=== PATIENT | female | born 1945 | race Caucasian/White ===

== ENCOUNTER → 2020-05-30 12:04 | Outpatient (BNVA) | payer MEDICARE, SELFPAY | PROVIDERS: Family Provider Family Medicine; Visit Provider Internal Medicine | DX: Z20.828 Contact with and (suspected) exposure to other viral communicable diseases (principal) | CPT/HCPCS: 87635 ==

== ENCOUNTER 2020-06-03 07:19 | Outpatient (CLI) | payer MEDICARE, MEDICAID, SELFPAY ==
--- NOTE | 2020-06-03 14:41 | PFTS_ITS ---
Date of Study:06/03/20 Date of Dictation: MECHANICS: Forced vital capacity (FVC) is reduced. Forced expiratory volume in one second (FEV1) is reduced. FEV1/FVC is normal. FLOW VOLUME LOOP: Narrow. LUNG VOLUMES: Not measured DIFFUSING CAPACITY FOR CARBON MONOXIDE: Not measured INTERPRETATION: Spirometry is consistent with moderately severe restriction. MTDD
== END 2020-06-03 07:20 | disposition home or self-care (01) ==
LOC: RT 07:21
PROVIDERS: PCP Internal Medicine; Visit Provider Internal Medicine
DX: R06.02 Shortness of breath (principal)
CPT/HCPCS: 94010; J7611

== ENCOUNTER 2020-06-24 14:39 | Outpatient (CLI) | payer MEDICARE, MEDICAID, SELFPAY ==
--- NOTE | 2020-06-24 14:47 | MM_ITS ---
WS: [id number] BILATERAL DIGITAL SCREENING MAMMOGRAPHY WITH CAD CLINICAL INFORMATION: SCREENING HISTORY: Screening mammogram. No current complaints. COMPARISON: TECHNIQUE: Bilateral CC and MLO views. FINDINGS: Scattered fibroglandular densities bilaterally. No suspicious focal mass, asymmetry, calcifications, or architectural distortion. No evidence of malignancy. Stable punctate calcifications. Stable cluste red calcifications. MM/[place] [id number] IMPRESSION: BI-RADS: 2-Benign FOLLOW UP: 1 Year Follow-up Recommend return to annual screening mammography.
== END 2020-06-24 14:40 | disposition home or self-care (01) ==
LOC: RADSHAW 14:46
PROVIDERS: PCP Internal Medicine; Visit Provider Internal Medicine
DX: Z12.31 Encounter for screening mammogram for malignant neoplasm of breast (principal)
CPT/HCPCS: 77067

== ENCOUNTER 2020-09-22 10:36 | Outpatient (CLI) | payer MEDICARE, MEDICAID, SELFPAY ==
--- NOTE | 2020-09-22 10:47 | XR_ITS ---
WS: [id number] SCREENING DEXA SCAN [facility] CLINICAL INFORMATION: OSTEOPOROSIS COMPARISON: None. FINDINGS: The L1-L4 bone mineral density measures 0.873 g/cm2. This corresponds to a T score score of -2.6 and Z score of -1.9. Left femoral neck bone mineral density measures 0.758 g/cm2. This corresponds to a T score of -2.0 an d Z score of -1.0. Right femoral neck bone mineral density measures 0.713 g/cm2. This corresponds to a T score -2.3of an d Z score of -1.4. Mean femoral neck bone mineral density measures 0.735 g/cm2. This corresponds to a T score of -2.2 an d Z score of -1.2. XR/XR DEXA axial skeleton* [id number] IMPRESSION: Osteoporosis Patient's FRAX calculated 10 year probability for major osteoporotic fracture i s 26.4 % and osteoporotic hip fracture is 8.8%.
== END 2020-09-22 10:37 | disposition home or self-care (01) ==
LOC: RADWPI 10:38
PROVIDERS: PCP Internal Medicine; Visit Provider Internal Medicine
DX: M81.0 Age-related osteoporosis without current pathological fracture (principal)
CPT/HCPCS: 77080

== ENCOUNTER 2021-02-06 10:29 | Outpatient (CLI) | payer MEDICARE, MEDICAID, SELFPAY ==
--- NOTE | 2021-02-06 10:42 | XR_ITS ---
WS: [id number] Chest 2 views, 02/06/2021 Clinical Data: SHORTNESS OF BREATH Comparison: PA and lateral chest, 01/11/2019. Findings: No nodules, masses or effusions are seen. The heart is normal. The pulmonary vascularity is not increased. No pneumonia or pneumothorax is seen. The aortic arch and descending aorta shows mild tortuosity. XR/XR chest 2V* [id number] Impression: Atherosclerosis.
--- NOTE | 2021-02-06 10:42 | US_ITS ---
WS: [id number] INDICATION: Right parotid mass TECHNIQUE: Ultrasound right parotid FINDINGS: Heterogeneous solid appearing lesion measuring 1.1 x 0.9 x 0.8 cm in the right parotid. Thi s may represent parotid nodule versus parotid lymph node. Recommend further evaluation with contrast- enhanced neck CT. Additional similar-appearing heterogeneous hypoechoic density in the left parotid m easuring 1.1 x 0.6 0.9 cm. US/US soft tissue head neck [id number] IMPRESSION: Heterogeneous hypoechoic solid appearing lesion in the right paroti d measuring 1.1 x 0.9 x 0.8 cm. Similar-appearing lesion in the left parotid. R ecommend further evaluation with contrast-enhanced CT neck for better anatomic detail.
== END 2021-02-06 10:30 | disposition home or self-care (01) ==
LOC: RAD 10:31
PROVIDERS: PCP Internal Medicine; Visit Provider Internal Medicine
DX: K11.8 Other diseases of salivary glands (principal); R06.02 Shortness of breath; I70.90 Unspecified atherosclerosis
CPT/HCPCS: 71046; 76536

== ENCOUNTER 2021-03-04 08:28 | Outpatient (CLI) | payer MEDICARE, MEDICAID, SELFPAY ==
--- NOTE | 2021-03-04 09:00 | CT_ITS ---
WS: [id number] CT NECK WITH CONTRAST HISTORY: PAROTID MASS, RIGHT TECHNIQUE: Contiguous 5 mm axial images are performed through the neck with intravenous contrast. Sag ittal and coronal reformats are also submitted. All CT scans at [facility] use at least o ne of these dose optimization techniques: automated exposure control; mA and/or kV adjustment per pat ient size (includes targeted exams where dose is matched to clinical indication); or iterative recons truction. CONTRAST: CONTRAST: Omnipaque 300; 95 mL IV. DLP: 1240.63 mGycm COMPARISON: Soft tissue ultrasound 02/06/2021 Nasopharynx, oropharynx, hypopharynx and larynx are unremarkable. No soft tissue masses or abnormal e nhancement. Torus tubarius and fossa of Rosenmuller and parapharyngeal fat are normal. No significant lymphadenopathy is identified. No parotid gland masses are identified. There is fat mixed within the parotid gland. No displacement of the retromandibular artery. There are a few small benign-appearing lymph nodes. Very small, 5 mm n odules within the fat inferior to the superficial parotid lobes. Suspect this is probably a benign ly mph node. These are bilateral and symmetric. There is no enhancing parotid gland mass. Osteopenia and increased cervical lordosis. Visualized portions of the skull base demonstrate no abnormalities. Orbits and globes are within norm al limits. No soft tissue masses. Visualized paranasal sinuses and mastoid air cells are normal. Motion artifact in the upper lungs. Benign granuloma on the LEFT. CT/CT neck w con* [id number] IMPRESSION: 1. No neck mass. 2. 5 mm nodules in the fat inferior to the superficial parotid lobes. Suspect these are likely small lymph nodes. No enhancing masses within either parotid g land. 3. No adenopathy.
[2021-03-04] MEDS: iohexol 300 mg/mL 100 mL Btl IV (09:32)
== END 2021-03-04 08:29 | disposition home or self-care (01) ==
LOC: RADWPI 08:34
PROVIDERS: PCP Internal Medicine; Visit Provider Internal Medicine
DX: K11.8 Other diseases of salivary glands (principal)
CPT/HCPCS: 70491; Q9967

== ENCOUNTER 2022-01-27 09:42 | Outpatient (CLI) | payer MEDICARE, MEDICAID, SELFPAY ==
--- NOTE | 2022-01-27 09:52 | MM_ITS ---
WS: [id number] BILATERAL SCREENING DIGITAL BREAST TOMOSYNTHESIS MAMMOGRAM WITH CAD HISTORY: SCREENING COMPARISON: 06/24/2020 and 07/04/2018 Bilateral CC and MLO views with tomosynthesis and synthetic mammography submitted. Computer aided det ection analyzed. Breast composition: There are scattered areas of fibroglandular density. No suspicious masses, microc alcifications or architectural distortion. Benign calcifications in each breast are stable. MM/[place] [id number] IMPRESSION: BI-RADS: 2-Benign FOLLOW UP: 1 Year Follow-up
== END 2022-01-27 09:43 | disposition home or self-care (01) ==
LOC: RAD 09:46
PROVIDERS: PCP Internal Medicine; Visit Provider Internal Medicine
DX: Z12.31 Encounter for screening mammogram for malignant neoplasm of breast (principal)
CPT/HCPCS: 77063; 77067

== ENCOUNTER 2023-02-13 17:10 | Emergency (ER) | payer MEDICARE, MEDICAID, SELFPAY ==
[2023-02-13 17:18] VITALS: BP 145/86; PULSE 97; RESP 14; TEMP 36.5; O2SAT 95; BMI 34.3
[2023-02-13 17:42] VITALS: BP 189/88; PULSE 90; O2SAT 92
--- NOTE | 2023-02-13 17:47 | XRR_ITS ---
PROCEDURE INFORMATION: Exam: XR Left Shoulder Exam date and time: 02/13/2023 5:59 PM Age: 78 years old Clinical indication: Pain; Shoulder; Left; Additional info: Pain no trauma TECHNIQUE: Imaging protocol: Radiologic exam of the left shoulder. Views: 2 or more views. COMPARISON: CT neck w con* [id number] 03/04/2021 9:24 AM FINDINGS: Bones/joints: Mild acromioclavicular and glenohumeral joint osteoarthritis suspected. Soft tissues: Normal. XR/XR shoulder LT min 2V* [id number] IMPRESSION: Mild acromioclavicular and glenohumeral joint osteoarthritis suspected.
[2023-02-13 17:54] LABS: Basophils # 0.1 10^3/uL (0.0-0.1); Basophils % 0.6 %; Eosinophils # 0.2 10^3/uL (0.0-0.8); Eosinophils % 2.4 %; Hematocrit 48.6 % (37.0-47.0); Hemoglobin 14.8 g/dL (11.5-15.3); Lymphocytes # 3.3 10^3/uL (0.8-4.8); Lymphocytes % 37.1 %; Mean Corpuscular HGB Conc 30.5 g/dL (30.0-36.0); Mean Corpuscular Hemoglobin 27.7 pg (28.0-34.0); Mean Corpuscular Volume 90.8 fl (81-99); Mean Platelet Volume 11.9 fL (7.4-10.4); Monocytes # 0.5 10^3/uL (0.2-0.9); Monocytes % 5.4 %; Neutrophils # 4.76 10^3/uL (1.8-7.7); Neutrophils % 54.2 %; Nucleated Red Blood Cells % 0 %; Platelet Count 286 10^3/cmm (130-400); Red Blood Count 5.35 10^6/uL (4.1-5.3); Red Cell Distribution Width 14.7 % (12.1-15.1); White Blood Count 8.8 10^3/uL (4.0-10.0)
[2023-02-13 18:05] LABS: INR 0.88 (0.8-1.2)
[2023-02-13 18:11] LABS: Alanine Aminotransferase 22 U/L (0-33); Albumin Level 4.5 g/dL (3.5-5.2); Alkaline Phosphatase 133 U/L (35-105); Anion Gap 16.7 (5-19); Aspartate Amino Transferase 26 U/L (0-32); Blood Urea Nitrogen 12 mg/dL (8-23); C Reactive Protein 16.2 mg/L (0.0-4.9); Carbon Dioxide 27 mmol/L (22-29); Chloride 101 mmol/L (98-107); Globulin 3.5 g/dL (1.3-4.6); Glucose 171 mg/dL (65-115); Osmolality Calculated 296 mOsm/kg (285-295); Potassium 3.7 mmol/L (3.5-5.1); Sodium 141 mmol/L (136-145); Total Bilirubin 1.3 mg/dL (0.15-1.2)
[2023-02-13 18:24] VITALS: BP 192/94; PULSE 88; O2SAT 94
--- NOTE | 2023-02-13 18:34 | ED_ITS ---
HPI - Weakness General: Chief complaint: Weakness Stated complaint: Left Arm Pain Time Seen by Provider: 02/13/23 17:41 History of Present Illness: Patient presents to the ER with left shoulder pain. Patient is able to move it internal/external rotation with minimal pain but anytime she abduction away from her body it started hurting very badly. Patient did not traumatize this to that she is aware of. It started sometime throughout the middle of the night and has gotten worse. Patient does not have any known chronic pain or injury to the shoulder. Review of Systems General: Reports: 10 or more systems reviewed and unremarkable except in HPI and below Physical Exam Const: COMMON NORMALS: no acute distress, average body habitus, patient oriented x3, no limitations, alert and well nourished HENMT: COMMON NORMALS: normocephalic, atraumatic, hearing grossly normal bilaterally, external ears normal, Normal external nose present and moist oral mucous membranes HEAD & SCALP: normocephalic and atraumatic NOSE: Normal external nose present EXTERNAL EAR: Yes external ears normal Neck/C-Spine: COMMON NORMALS: full ROM, no lymphadenopathy, supple, no meningeal signs, no JVD and Thyroid normal THYROID: Thyroid normal Chest: COMMONS NORMALS: normal inspection of the chest and normal palpation of entire chest wall Resp: COMMON NORMALS: normal respiratory effort, No retractions, No use of accessory muscles and clear to auscultation bilaterally AUSCULTATION: clear to auscultation bilaterally Cardio: COMMON NORMALS: no JVD, regular rate, regular rhythm, S1 normal heart sound present, S2 normal heart sound present, No gallops present (Cardio), No clicks present (Cardio), No murmurs present (Cardio) and No rub (Cardio) RATE: regular rate RHYTHM: regular rhythm HEART SOUNDS: S1 normal heart sound present and S2 normal heart sound present GI: COMMON NORMALS: Normal to inspection, nondistended, normoactive bowel sounds present, Soft to palpation, non-tender, No hepatosplenomegaly present and no masses PALPATION: Yes Soft to palpation and Yes No hepatosplenomegaly present Extremity: NARRATIVE EXTREMITY EXAM: Tenderness to palpation on the anterior shoulder joint region of the left. Patient has good internal/external rotation under her own power. Patient has good passive flexion extension and abduction with minimal pain. When patient tries to do these motions on her own she has severe pain. Neuro: COMMON NORMALS: patient oriented x3 SENSORIUM/ORIENTATION: Yes alert MENINGEAL SIGNS: Yes no meningeal signs Course Vital Signs: Vital signs: Vital Signs Temperature 97.7 F 02/13/23 17:18 Pulse Rate 90 02/13/23 17:42 Respiratory Rate 14 02/13/23 17:18 Blood Pressure 189/88 02/13/23 17:42 Pulse Oximetry 92 02/13/23 17:42 Oxygen Delivery Me thod Room Air 02/13/23 17:42 MDM - Weakness Medical Decision Making Presents to the ER with complaints of left shoulder pain that started throughout the night with no known trauma. Patient does not have any history of pain like this. An x-ray was obtained as well as blood work all of which was essentially benign except for some arthritis. We will put the patient in a sling and have her follow-up with her PCP for further evaluation testing patient may have torn something throughout the middle of the night and may require an MRI and/or orthopedic consult we will out to PCP take care of this. Differential Diagnosis Likely acute myocardial infarction Medical Records I reviewed the patient's medical records. Lab Data I reviewed the patient's lab results. 02/13/23 17:38 02/13/23 17:38 Radiology Impressions Shoulder X-Ray 02/13/23 17:47 IMPRESSION: Mild acromioclavicular and glenohumeral joint osteoarthritis suspected. Laboratory Results WBC 8.8 10^3/uL (4.0-10.0) 02/13/23 17:38 RBC 5.35 10^6/uL (4.1-5.3) H 02/13/23 17:38 Hgb 14.8 g/dL (11.5-15.3) 02/13/23 17:38 Hct 48.6 % (37.0-47.0) H 02/13/23 17:38 MCV 90.8 fl (81-99) 02/13/23 17:38 MCH 27.7 pg (28.0-34.0) L 02/13/23 17:38 MCHC 30.5 g/dL (30.0-36.0) 02/13/23 17:38 RDW 14.7 % (12.1-15.1) 02/13/23 17:38 Plt Count 286 10^3/cmm (130-400) 02/13/23 17:38 MPV 11.9 fL (7.4-10.4) H 02/13/23 17:38 Neut % (Auto) 54.2 % 02/13/23 17:38 Lymph % (Auto) 37.1 % 02/13/23 17:38 Gonzales % (Auto) 5.4 % 02/13/23 17:38 Eos % (Auto) 2.4 % 02/13/23 17:38 Baso % (Auto) 0.6 % 02/13/23 17:38 Neut # (Auto) 4.76 10^3/uL (1.8-7.7) 02/13/23 17:38 Lymph # (Auto) 3.3 10^3/uL (0.8-4.8) 02/13/23 17:38 Gonzales # (Auto) 0.5 10^3/uL (0.2-0.9) 02/13/23 17:38 Eos # (Auto) 0.2 10^3/uL (0.0-0.8) 02/13/23 17:38 Baso # (Auto) 0.1 10^3/uL (0.0-0.1) 02/13/23 17:38 Nucleated RBC % (auto) 0 % 02/13/23 17:38 Nucleated RBCs # 0.0 /100WBC 02/13/23 17:38 PT 12.20 SECONDS (12.1-14.9) 02/13/23 17:38 INR 0.88 (0.8-1.2) 02/13/23 17:38 Sodium 141 mmol/L (136-145) 02/13/23 17:38 Potassium 3.7 mmol/L (3.5-5.1) 02/13/23 17:38 Chloride 101 mmol/L (98-107) 02/13/23 17:38 Carbon Dioxide 27 mmol/L (22-29) 02/13/23 17:38 Anion Gap 16.7 (5-19) 02/13/23 17:38 BUN 12 mg/dL (8-23) 02/13/23 17:38 Creatinine 0.8 mg/dL (0.5-0.9) 02/13/23 17:38 GFR Calculation Not Reportable 02/13/23 17:38 Glucose 171 mg/dL (65-115) H 02/13/23 17:38 Calculated Osmolality 296 mOsm/kg (285-295) H 02/13/23 17:38 Calcium 9.0 mg/dL (8.5-10.5) 02/13/23 17:38 Magnesium 2.0 mg/dL (1.7-2.3) 02/13/23 17:38 Total Bilirubin 1.3 mg/dL (0.15-1.2) H 02/13/23 17:38 AST 26 U/L (0-32) 02/13/23 17:38 ALT 22 U/L (0-33) 02/13/23 17:38 Alkaline Phosphatase 133 U/L (35-105) H 02/13/23 17:38 C-Reactive Protein 16.2 mg/L (0.0-4.9) H 02/13/23 17:38 Total Protein 8.0 g/dL (6.6-8.7) 02/13/23 17:38 Albumin 4.5 g/dL (3.5-5.2) 02/13/23 17:38 Globulin 3.5 g/dL (1.3-4.6) 02/13/23 17:38 Discharge Plan Discharge Patient Disposition: Home Clinical Impression: Acute pain of left shoulder Condition: Stable Discharge Orders: Discharge ED (Routine); Ordered 02/13/23 Ordered By: Rubens Lawrence Referrals: Uma Mccarty MD [Primary Care Provider] - 1 week Coding Level of Care Code ED [employer] Operator for Supriya Gaspar
[2023-02-13 19:06] VITALS: PULSE 90; O2SAT 94
== END 2023-02-13 19:07 | disposition home or self-care (01) ==
PROVIDERS: Emergency Provider Emergency Medicine; PCP Internal Medicine
DX: M25.512 Pain in left shoulder (principal)
CPT/HCPCS: 73030; 80053; 83735; 85025; 85610; 86140; 99284

== ENCOUNTER 2023-07-13 11:59 | Outpatient (CLI) | payer MEDICARE, MEDICAID, SELFPAY ==
--- NOTE | 2023-07-13 12:07 | XR_ITS ---
WS: [id number] Chest 2 views, 07/13/2023 Clinical Data: COUGH Comparison: Two-view chest, 02/06/2021 Findings: No nodules, masses or effusions are seen. The heart is normal. The pulmonary vascularity is not increased. No pneumonia or pneumothorax is seen. There is a right cardiophrenic fat pad or cyst. The aortic arch and descending thoracic aorta show tortuosity. Impression: Atherosclerosis.
== END 2023-07-13 12:00 | disposition home or self-care (01) ==
LOC: RAD 12:00
PROVIDERS: PCP Internal Medicine; Visit Provider Internal Medicine
DX: R05.9 Cough, unspecified (principal); I70.90 Unspecified atherosclerosis
CPT/HCPCS: 71046

== ENCOUNTER 2023-07-26 14:52 | Outpatient (CLI) | payer MEDICARE, MEDICAID, SELFPAY ==
--- NOTE | 2023-07-26 14:59 | CTR_ITS ---
PROCEDURE INFORMATION: Exam: CT Chest With Contrast; Diagnostic Exam date and time: 07/26/2023 3:18 PM Age: 78 years old Clinical indication: Patient HX: Cough x 2 months, knot on upper right side of chest x 2 months-bb TECHNIQUE: Imaging protocol: Diagnostic computed tomography of the chest with contrast. Radiation optimization: All CT scans at this facility use at least one of these dose optimization techniques: automated exposure control; mA and/or kV adjustment per patient size (includes targeted exams where dose is matched to clinical indication); or iterative reconstruction. Contrast material: OMNI 350; Contrast volume: 95 ml; Contrast route: INTRAVENOUS (IV); REPORTING DATA: Count of CT and Cardiac NM exams in prior 12 months: This patient has received 0 known CTs and 0 known cardiac nuclear medicine studies in the 12 months prior to the current study. COMPARISON: CR XR chest 2V* [id number] 07/13/2023 12:10 PM RADIATION DOSE METRICS: Total DLP (mGy-cm): 1183.23 FINDINGS: Lungs: Left mid/lower lung ground-glass opacities (series 10, image 24). Small calcified granuloma in the lingula. Couple tiny micronodules are present such as series 2, image 33 in the left lower lobe. Pleural spaces: No pneumothorax or pleural effusion. Heart: No significant coronary calcifications. No pericardial effusion. Lymph nodes: No enlarged lymph nodes. Vasculature: No aortic aneurysm. Bones/joints: Degenerative changes without acute findings. Soft tissues: Hepatic and renal cysts. Hepatic steatosis. CT/CT chest w con* [id number] IMPRESSION: Left lung ground-glass opacities likely infectious/inflammatory. No findings to correlate to BB marker in the right upper chest.
[2023-07-26] MEDS: iohexol 350 mg/mL 500 mL Btl (per mL) IV (15:35)
== END 2023-07-26 14:53 | disposition home or self-care (01) ==
LOC: RAD 14:52
PROVIDERS: PCP Internal Medicine; Visit Provider Internal Medicine
DX: R05.9 Cough, unspecified (principal); R91.8 Other nonspecific abnormal finding of lung field
CPT/HCPCS: 71260; Q9967

== ENCOUNTER → 2024-05-04 08:09 | Outpatient (BNVA) | payer MEDICARE, MEDICAID, SELFPAY | PROVIDERS: PCP Internal Medicine; Referring Provider Internal Medicine; Visit Provider Surgery | DX: R22.2 Localized swelling, mass and lump, trunk (principal) | CPT/HCPCS: 99204 ==

== ENCOUNTER 2024-05-24 08:05 | Day surgery (SDC) | payer MEDICARE, MEDICAID, SELFPAY ==
[2024-05-24] VITALS (11 sets, daily range): BP systolic 126–157; BP diastolic 67–110; PULSE 87–103; RESP 14–23; TEMP 36.1–36.2; O2SAT 91–95; BMI 35.5
--- NOTE | 2024-05-24 08:33 | W.PM.OPSUD ---
Surgery/Procedure H&P Update DATE OF PROCEDURE: May 24, 2024 DATE H&P PERFORMED: 05/04/24 H&P UPDATE INFORMATION: I have reviewed H&P completed within last 30 days, I have examined patient prior to procedure and No changes to prior documentation PLANNED PROCEDURE: Operation Date: 05/24/24 09:30 Proposed Procedures p excision of subq back mass [id number],R22.2(Not Applicable) - Jose Shore, DO
[2024-05-24] MEDS: sodium chloride 0.9% 1,000 ML 30 ML IV (08:42)
--- NOTE | 2024-05-24 08:50 | ANES.PREANE2 ---
Pre-Anesthetic Assessment Height/Weight: Height 5 ft 6 in Weight 220 lb Temp Pulse Resp BP Pulse Ox O2 Del Method 97.0 F L 103 H 18 157/110 94 Room Air 05/24/24 08:47 05/24/24 08:47 05/24/24 08:47 05/24/24 08:47 05/24/24 08:47 05/24/24 08:47 Preop Diagnosis: back Mass Operation Date: 05/24/24 09:30 Proposed Procedures p excision of subq back mass [id number],R22.2(Not Applicable) - Jose Shore, DO Social No alcohol and No tobacco Exam alert, oriented x 3, clear to auscultation bilaterally and regular rate & rhythm Airway Submandibular: within normal limits Cervical ROM: within normal limits Mallampati: Class IV Dentition: other (Edentulous with poor mouth opening effort) Anesthetic Plan ASA status: 3 Anesthesia: Choice Other: No prior issues with anesthesia NPO since midnight History of hypothyroidism on Synthroid Diabetes, takes metformin Occasional albuterol use for wheezing Denies any cardiac issues METs greater than 4 Will discuss with surgeon, plan for general anesthesia with LMA versus MAC Medications/Allergies Home Medications Medication Instructions Recorded Confirmed Last Taken Type albuterol sulfate 90 mcg/actuation 2 inh inhalation .Q6HR PRN Wheezing 05/11/24 05/23/24 05/22/24 History aerosol inhaler atorvastatin 20 mg tablet 20 mg PO DAILY 05/11/24 05/23/24 05/22/24 History baclofen 10 mg tablet 10 mg PO .Q8HR PRN Pain 05/11/24 05/23/24 05/22/24 History dulaglutide 0.75 mg/0.5 mL 0.75 mg SUBCUT .WEEKLY 05/11/24 05/11/24 05/22/24 History subcutaneous pen injector (Trulicity) empagliflozin 25 mg tablet 25 mg PO DAILY 05/11/24 05/23/24 05/22/24 History (Jardiance) fluticasone propionate 50 1 spray intranasal BID 05/11/24 05/23/24 05/22/24 History mcg/actuation nasal spray,suspension gabapentin 100 mg capsule 100 mg PO TID 05/11/24 05/23/24 05/22/24 History levothyroxine 112 mcg tablet 112 mcg PO DAILY 0905/23/24 05/22/24 History meloxicam 15 mg tablet 15 mg PO DAILY 05/11/24 05/23/24 05/22/24 History metformin 1,000 mg tablet 1,000 mg PO BID 05/11/24 05/23/24 05/22/24 History omeprazole 20 mg capsule,delayed 20 mg PO DAILY 05/11/24 05/23/24 05/22/24 History release trazodone 150 mg tablet 150 mg PO .QHS 05/11/24 05/23/24 05/22/24 History triamcinolone acetonide 0.1 % 1 applic topical BID PRN Itching 05/11/24 05/23/24 05/22/24 History topical ointment Allergies Allergy/AdvReac Type Severity Reaction Status Date / Time No Known Allergies Allergy Verified 05/04/24 08:18 Current Medications Generic Name Dose Route Start Last Admin Trade Name Freq PRN Reason Stop Dose Admin Sodium Chloride 1,000 mls @ 30 mls/hr 05/24/24 08:30 05/24/24 08:42 Sodium Chloride 0.9% IV 05/25/24 08:29 30 mls/hr .Q24H RICK Administration PFSH Anesthesia Social History Smoking and tobacco/nicotine status: unknown if used tobacco/nicotine Data Anesthesia Cardiac Studies: No Data to Display
[2024-05-24 08:55] LABS: Glucose Point of Care 208 mg/dL (70-110)
[2024-05-24] MEDS: ceFAZolin 2,000 mg SDV 2000 MG IVP (09:08)
[2024-05-24] MEDS: lidocaine-epi 2% PF 1:200,000 20 mL SDV XX (09:24)
[2024-05-24] MEDS: neomycin-poly-bacitracin oint 28 gm 1 APPLIC TOPICAL (09:42)
--- NOTE | 2024-05-24 09:55 | P.OP_ITS ---
Operative Report Date of procedure: May 24, 2024 Pre-op diagnosis: Subcutaneous mass of back Post-op diagnosis: same Procedure done: Excision of subcutaneous mass of back 5.5 cm Implants: None Specimens removed/disposition: Excision of subcutaneous mass of back Surgeon: Jose Shore DO Anesthesia: General and Local Estimated blood loss (mL): 5 Complications: None apparent Brief History: This is a very pleasant 79-year-old female presented my office with an enlarging and painful subcutaneous mass of her back. She desired excision. The risks and benefits were Splane and documented. Procedure: Patient was wheeled operative room placed on the OR table supine position. General endotracheal ovation was achieved by department anesthesia. Patient was then placed into the left lateral decubitus position. The back was inspected prepped and draped in usual sterile fashion. Timeout was performed. All present were in agreement. 2% lidocaine with epinephrine was used to anesthetize the skin over the subcutaneous mass. A 5.5 cm transverse skin rafaela pse was made with a 10 blade scalpel. Electrocautery was used dissect down through the dermis and to a cystic structure. This cystic structure was entirely excised from the surrounding subcutaneous fat using electrocautery. Specimen was passed off. Specimen measured 5.5 cm in greatest dimension. The wound cavity was then irrigated with normal saline. Dermis approximated with 3- 0 Vicryl in an interrupted fashion. Skin was closed using 3-0 nylon in a simple running fashion. Bacitracin was applied. Sterile dressings were applied. Patient tolerated procedure well.
[2024-05-24] MEDS: cetylpyridinium Lozenge 1 EACH MUCOUS MEM (11:01)
--- NOTE | 2024-05-24 11:45 | ANE.PACU2 ---
Inpatient post-anesthesia follow up: Airway intact: Yes Vital signs: Temperature 97.1 F Pulse Rate 87 Respiratory Rate 18 Blood Pressure 136/73 Pulse Oximetry 93 Oxygen Delivery Me thod Room Air Oxygen Flow Rate 2 Fraction of Inspir ed Oxygen Hydration adequate: Yes Nausea and vomiting: No Pain level: 1 Mental status: Baseline
== END 2024-05-24 11:45 | disposition home or self-care (01) ==
PROVIDERS: PCP Internal Medicine; Visit Provider Surgery
PROC: (CPT 11406; principal; 2024-05-24 09:30)
DX: L72.0 Epidermal cyst (principal); E11.9 Type 2 diabetes mellitus without complications; Z79.84 Long term (current) use of oral hypoglycemic drugs; E03.9 Hypothyroidism, unspecified
CPT/HCPCS: 11406; 12032; 36416; 82962; 88307; J0690; J1100; J2405; J2704; J3010; J3490; J7030

== ENCOUNTER → 2024-05-28 08:20 | Outpatient (BNVA) | payer MEDICARE, MEDICAID, SELFPAY | PROVIDERS: PCP Internal Medicine; Visit Provider Surgery | DX: Z98.890 Other specified postprocedural states (principal) | CPT/HCPCS: 99214 ==

== ENCOUNTER → 2024-06-01 08:32 | Outpatient (BNVA) | payer MEDICARE, MEDICAID, SELFPAY | PROVIDERS: PCP Internal Medicine; Visit Provider Surgery | DX: Z98.890 Other specified postprocedural states (principal); Z87.2 Personal history of diseases of the skin and subcutaneous tissue | CPT/HCPCS: 99212 ==